=== PATIENT | female | born 1990 | race Caucasian/White ===

== ENCOUNTER → 2018-02-08 13:16 | Outpatient (CLI) | payer MEDICAID, SELFPAY ==
[2018-02-08 16:08] LABS: Hematocrit 34.1 % (37-47); Hemoglobin 11.3 g/dl (12.0-15.0); Mean Corp Hgb Conc 33.1 g/gl (32-36); Mean Corpuscular Hgb 32.8 pg (27.0-32.0); Mean Corpuscular Volume 98.8 fL (81-99); Mean Platelet Vol. 10.8 fl (6.2-12.0); Platelet Count 279 K/mm3 (150-450); RBC Distribution Width SD 44.6 fl (35.1-43.9); Red Blood Count 3.45 M/mm3 (4.2-5.4); White Blood Count 12.7 K/mm3 (4.4-11.0)
[2018-02-08 16:09] LABS: Scan Indicated on CBC? Y/N NO
[2018-02-08 16:16] LABS: Glucose Challenge Gest 1H 50g 96 mg/dL (70-140)
== END ==
PROVIDERS: Visit Provider Obstetrics & Gynecology
DX: Z34.83 Encounter for supervision of other normal pregnancy, third trimester (principal)
CPT/HCPCS: 36415; 82950; 85027

== ENCOUNTER → 2018-03-16 09:51 | Outpatient (CLI) | payer MEDICAID, SELFPAY ==
--- NOTE | 2018-03-16 09:52 | ECHOL_ITS ---
Reason For Study: CARDIOMYOPATHY Procedure This was a limited 2D transthoracic echocardiogram. Limited views were obtained. Exam performed in department. Left Ventricle Normal LV size. Left ventricular systolic function is lower limits of normal. The estimated ejection fraction is 50 %. No regional wall motion abnormalities noted. Right Ventricle Normal RV size. Normal systolic function. Atria Normal left atrium. Normal right atrium. Mitral Valve There is no mitral annular calcification. Mild diffuse mitral valve thickening. Tricuspid Valve Normal tricuspid valve. Aortic Valve Trisinus/trileaflet aortic valve. Normal aortic valve. Pulmonic Valve The pulmonic valve is not well visualized. Pericardium/Pleural Trivial pericardial effusion. There are no echocardiographic indications of cardiac tamponade. MMode/2D Measurements & Calculations LVIDd: 4.6 cm IVSd: 1.1 cm LAV(MOD-bp): 69.9 ml LVIDs: 3.5 cm LVPWd: 1.1 cm LAV(MOD-bp) Indexed: 40.7 ml/m2 RVDd: 3.5 cm FS: 24.0 % LAV(MOD-sp2): 71.5 ml LAV(MOD-sp4): 66.2 ml LA A4 area: 20.6 cm2 RA A4 area: 16.8 cm2 Interpretation Summary Limited views were obtained. Left ventricular systolic function is lower limits of normal. The estimated ejection fraction is 50 %. Mild diffuse mitral valve thickening. Trivial pericardial effusion. There are no echocardiographic indications of cardiac tamponade. Ordering Physician: Efren Titus Referring Physician: Jose Spence Performed By: Vera Ball RDCS, RVT
== END ==
PROVIDERS: Visit Provider Physician Assistant Medical
DX: I42.9 Cardiomyopathy, unspecified (principal); R00.2 Palpitations; I49.3 Ventricular premature depolarization
CPT/HCPCS: 93308

== ENCOUNTER 2018-04-26 05:18 | Inpatient (IN) | payer MEDICAID, SELFPAY ==
[2018-04-25 13:16] VITALS: BMI 42.0
[2018-04-25 14:39] LABS: Absolute Lymphocyte Count 2.23 X10^3/ul (0.83-4.51); Absolute Neutrophil Count 7.2 X10^3/uL (2.0-7.7); Basophil# 0.02 X10^3/uL; Basophil% 0.2 % (0-1); Eosinophil# 0.09 X10^3/uL; Eosinophils% 0.9 % (0-5); Hematocrit 33.1 % (37-47); Hemoglobin 10.8 g/dl (12.0-15.0); Lymphocyte # 2.23 X10^3/ul (4.0); Lymphocyte % 21.6 % (19-41); Mean Corp Hgb Conc 32.6 g/gl (32-36); Mean Corpuscular Hgb 30.3 pg (27.0-32.0); Mean Platelet Vol. 10.7 fl (6.2-12.0); Monocyte# 0.79 X10^3/uL; Monocyte% 7.6 % (0-10); Neutrophil # 7.17 X10^3/uL (2.7-7.7); Neutrophil % 69.4 % (47-70); Platelet Count 254 K/mm3 (150-450); Red Blood Count 3.56 M/mm3 (4.2-5.4); White Blood Count 10.3 K/mm3 (4.4-11.0)
[2018-04-25 14:40] LABS: POSITIVE COUNT NO; POSITIVE DIFFERENTIAL NO; POSITIVE MORPHOLOGY NO
[2018-04-26] VITALS (24 sets, daily range): BP systolic 101–122; BP diastolic 58–80; PULSE 82–103; RESP 16–20; TEMP 36.3–37.7; O2SAT 96–100; BMI 33.5
[2018-04-26] MEDS: Lactated Ringers 1,000 ML 999 ML IV (05:40)
[2018-04-26 06:07] LABS: International Normalized Ratio 1.1; Partial Thromboplast Time 28.6 Seconds (24.1-36.2); Prothrombin Time (Protime)PT. 13.9 SECONDS (11.7-14.9)
[2018-04-26] MEDS: Lactated Ringers 1,000 ML 150 ML IV (06:40)
[2018-04-26] MEDS: Sodium Citrate/Citric Acid 30 ML UDC PO (07:09)
[2018-04-26] MEDS: Cefazolin 2 GM in 0.9% Normal Saline 100 ML IV (07:20)
[2018-04-26] MEDS: Ketorolac 30 MG/ML Syringe IV (07:30)
[2018-04-26] MEDS: Oxytocin 30 units/NS 500 ml 30 UNITS/500 ML IV.SOLN 167 UNITS IV (07:38)
--- NOTE | 2018-04-26 08:22 | OP.PCM_ITS ---
Operative Report Date of Procedure: 04/26/18 Surgeon: Jose Spence MD, FACOG Mineral Resources Inspector: AMEENA Mendiola Anesthesia: Erin Clifton CRNA Anesthesia: Spinal with Duramorph Pre-op Diagnosis: - -Prior Section Post-Op Diagnosis: - -Prior Section Procedure: Repeat Low Transverse Cervical Caesarean Section Findings: Viable female infant with Apgars of 8/9 in occiput posterior presentation with clear amniotic fluid and normal three-vessel placenta. Indication: This is a 27-year-old who presents for her second at 39+ weeks gestation. care has otherwise been uneventful. The patient has been counseled regarding the risk and indications of this procedure including the possibility of bleeding infection and injury to surrounding structures such as bowel bladder. All questions were answered. Procedure: Patient was taken to the operating room where after spinal anesthesia was placed, the patient was prepped and draped in usual sterile fashion and a Ceja catheter was placed. The abdomen was entered through the patient's prior Pfannenstiel incision and peritoneum was entered bluntly. After developing a bladder flap on the lower uterine segment a low transverse incision was made on the uterus and head was easily delivered onto the operative field the nose mouth and oropharynx were bulb suctioned. Subsequently a viable female infant was born with Apgars of/9. The was noted to cry move all extremities vigorously on the operative field. The umbilical cord was doubly clamped and ligated and infant handed to the nursery personnel who were present for the delivery. Placenta was delivered and noted to be 3 vessels and normal. Uterus was exteriorized and remaining placental tissue was removed. The uterus was then closed in 2 layers first with running locked 0 Vicryl suture followed by a second imbricating layer with 0 Vicryl suture. 0 Vicryl suture was then used in a horizontal mattress interrupted fashion to affect final hemostasis of the uterine incision line. Normal fallopian tubes and ovaries were visualized and the uterus was returned to the pelvis. Hemostasis was noted and rectus abdominis muscles were reapproximated in the midline with interrupted Number 0 Vicryl suture in a horizontal mattress fashion. Fascia was closed with running Number 1 PDS Strata fix suture. Subcutaneous tissue was irrigated with copious amounts of saline solution and then closed with running 3-0 Vicryl suture. Skin was closed with 4-0 monocryl suture in a running subcuticular fashion. Silver Mefilex was placed across the incision. The patient tolerated the procedure well and was taken to the recovery room in satisfactory condition. Sponge, needle, and instrument counts were all reportedly correct. EBL was <500 cc. Ancef 2 gms IV was given prior to the procedure. Spicemen to Pathology: None Complications: None
--- NOTE | 2018-04-26 08:23 | DCINST_ITS ---
Discharge Diet: No Restrictions Discharge Activity: May not drive while taking narcotic pain medications., May Shower, May Take a Tub Bath May resume sexual activity in: 4-6 weeks Lifting Restrictions: 20 pounds Additional Activity Instructions:: Nothing in the vagina for 4-6 weeks. You may return to work/school in 6 weeks. Call your doctor if your incision/area has: Continuous Slow Oozing, Sudden Increased Bleeding, Increased Pain/ Swelling, Increased Redness, Foul Smelling Discharge Call your doctor if you observe: Fever of 101 or Higher, Inability to urinate, Inability to have a bowel movement, Using more than one pad per hour Additional Instructions: If you experience any of the following, contact your healthcare provider. * Bleeding that soaks a pad every hour for 2 hours * Unrelieved incision or abdominal pain * Swelling, redness, discharge or bleeding from your incision or episiotomy site * Your incision begins to separate * Problems urinating (including inability to urinate or burning while urinating) . * Visual changes * Severe headache * Flu-like symptoms * Pain or redness in one of both of your breasts * Pain, warmth, tenderness or swelling in your legs, especially the calf area * Frequent nausea and vomiting * Symptoms of depression or anxiety If you experience any of the following, call 911 or go to the nearest Emergency Room. * Chest pain * Problems breathing * Seizure activity * Partial or complete paralysis of a body part, slurred speech, weakness or drooping of the face, or a sudden inability to walk or hold your balance Allergies/Adverse Reactions: Allergies No Known Allergies Allergy (Verified 01/11/18 11:30) Medications to take at Discharge vitamin,calcium,tmwwjnpo-svze-ogfbw acid tablet 1 tab PO BID 11/24/17 labetalol 100 mg tablet 150 mg PO BID tab 01/13/18 Docusate Sodium [Colace] 100 mg PO BID PRN PRN #60 cap 04/26/18 Oxycodone [Oxyir] 5 mg PO Q6H PRN PRN 7 Days #20 tab 04/26/18 The following prescriptions were given: Oxycodone [Oxyir] 5 mg PO Q6H PRN PRN 7 Days #20 tab PRN Reason: Severe Pain (-09/06) Docusate Sodium [Colace] 100 mg PO BID PRN PRN #60 cap PRN Reason: Constipation Follow-Up: Call to make an appointment with your doctor for an incision check in 1-2 weeks. You will also need a 6 week post- follow up appointment. Please Follow Up With: Jose Spence MD - [phone] When: Call to make an appointment for an incision check in 1 week. Primary Care Physician: Care Physician,No Primary [Primary Care Provider] -
[2018-04-26] MEDS: Methylergonovine 0.2 MG/ML Ampul IM ×2 (09:05→09:25)
[2018-04-26] MEDS: miSOPROStol 200 MCG Tablet PO ×3 (09:25→18:24)
[2018-04-26] MEDS: Carboprost Tromethamine 250 MCG/ML Ampul IM (09:50)
--- NOTE | 2018-04-26 10:54 | NURSING ---
bedside report given to DILIA Larsen
[2018-04-26] MEDS: Labetalol 100 MG Tablet 150 MG PO (11:20)
[2018-04-26] MEDS: Lactated Ringers 1,000 ML 100 ML IV ×2 (12:40→22:59)
[2018-04-26] MEDS: Cefazolin 1 GM/50 ML BAG IV ×2 (15:54→23:00)
--- NOTE | 2018-04-26 19:36 | NURSING ---
LE: EBL from hemorrhage 500 cc via scale.
[2018-04-26] MEDS: Acetaminophen 500 MG Tablet 1000 MG PO (22:59)
[2018-04-26] MEDS: Labetalol 100 MG Tablet PO (22:59)
[2018-04-27] VITALS (11 sets, daily range): BP systolic 96–106; BP diastolic 55–74; PULSE 80–97; RESP 16–18; TEMP 36.8–37.4; O2SAT 94–98
[2018-04-27] MEDS: Ketorolac 30 MG/ML Syringe IV ×4 (02:13→19:22)
[2018-04-27 04:46] LABS: Hematocrit 26.5 % (37-47); Hemoglobin 8.8 g/dl (12.0-15.0); Mean Corp Hgb Conc 33.2 g/gl (32-36); Mean Corpuscular Hgb 31.7 pg (27.0-32.0); Mean Corpuscular Volume 95.3 fL (81-99); Mean Platelet Vol. 10.7 fl (6.2-12.0); Platelet Count 214 K/mm3 (150-450); RBC Distribution Width SD 46.1 fl (35.1-43.9); Red Blood Count 2.78 M/mm3 (4.2-5.4); White Blood Count 13.1 K/mm3 (4.4-11.0)
[2018-04-27 04:56] LABS: Scan Indicated on CBC? Y/N NO
[2018-04-27] MEDS: oxyCODONE 5 MG Tablet PO ×2 (08:17→12:23)
[2018-04-27] MEDS: Senna/Docusate Sodium 1 Tablet PO (08:18)
[2018-04-27] MEDS: Lactated Ringers 1,000 ML 100 ML IV (08:18)
--- NOTE | 2018-04-27 09:17 | PN.OBGYN_ITS ---
Subjective: Patient without complaints. Tolerating diet well. Denies flatus. Minimal vaginal bleeding now after uterine atony postop requiring 2 doses of Methergine , 3 doses of Cytotec, and a single dose of Hemabate. - Physical Exam Vital Signs AF, VSS Temp Pulse Resp BP Pulse Ox 98.3 F 91 16 96/55 L 95 04/27/18 04:14 04/27/18 06:57 04/27/18 06:57 04/27/18 04:14 04/27/18 06:57 Oxygen Delivery Method Room Air Weight: 177 lb 4 oz Body Mass Index (BMI) 33.5 Intake and Output for Last 24 Hours 04/25/18 04/26/18 04/27/18 23:59 23:59 23:59 Intake Total 3148 / 3148 1177 / 1177 Output Total 3200 / 3200 1200 / 1200 Balance -52 / -52 -23 / -23 Laboratory Tests Past 24 Hrs 04/27/18 04:21 WBC 13.1 H RBC 2.78 L Hgb 8.8 L Hct 26.5 L MCV 95.3 MCH 31.7 MCHC 33.2 RDW 14.0 RDW Differential 46.1 H Plt Count 214 MPV 10.7 Wound is clean, dry, intact. Good urine output. Hemoglobin okay. Medical Necessity - Tobacco Use Smoking Status: Never smoker Assessment/Plan All Active Problems (Last Reviewed 01/11/18 @ 11:31 by Tuyet Raygoza) Palpitations (Acute) Cardiomyopathy (Acute) Doing well. Continuing present care.
[2018-04-27] MEDS: Labetalol 100 MG Tablet PO ×2 (10:03→21:47)
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
[2018-04-27] MEDS: 0.9% Saline Lock 10 ML Syringe IV (19:27)
[2018-04-28] MEDS: Ketorolac 30 MG/ML Syringe IV (01:04)
[2018-04-28] MEDS: oxyCODONE 5 MG Tablet PO ×2 (01:04→15:54)
[2018-04-28] MEDS: 0.9% Saline Lock 10 ML Syringe IV (01:13)
[2018-04-28 02:00] VITALS: BP 102/65; PULSE 94; RESP 16; TEMP 36.9; O2SAT 94
[2018-04-28] MEDS: Acetaminophen 500 MG Tablet 1000 MG PO (05:58)
[2018-04-28 08:00] VITALS: BP 99/63; PULSE 88; RESP 15; TEMP 36.8
--- NOTE | 2018-04-28 09:07 | PCM.PN.OB ---
Subjective: Patient without complaints. Tolerating diet well. Breast-feeding going well. Positive flatus. Wants to go home today. - Physical Exam Vital Signs AF, VSS Temp Pulse Resp BP Pulse Ox 98.5 F 94 16 102/65 94 04/28/18 02:00 04/28/18 02:00 04/28/18 02:00 04/28/18 02:00 04/28/18 02:00 Oxygen Delivery Method Room Air Weight: 177 lb 4 oz Body Mass Index (BMI) 33.5 Intake and Output for Last 24 Hours 04/26/18 04/27/18 04/28/18 23:59 23:59 23:59 Intake Total 3148 / 3148 2399 / 2399 Output Total 3200 / 3200 2150 / 2150 Balance -52 / -52 249 / 249 Wound is clean, dry, intact. Good urine output. Medical Necessity - Tobacco Use Smoking Status: Never smoker Assessment/Plan All Active Problems (Last Reviewed 01/11/18 @ 11:31 by Tuyet Raygoza) Palpitations (Acute) Cardiomyopathy (Acute) Operative day #2 status post repeat Doing well. Wants to go home today. Will release to home with routine instructions.
[2018-04-28 10:00] VITALS: BP 101/66
[2018-04-28] MEDS: Senna/Docusate Sodium 1 Tablet PO (10:31)
[2018-04-28] MEDS: Labetalol 100 MG Tablet PO (10:31)
--- NOTE | 2018-04-28 12:38 | NURSING ---
discharge talk done; pt verbalizes understanding; denies need for any further infant or maternal care teaching
[2018-04-28] MEDS: Ibuprofen 600 MG Tablet PO (12:45)
[2018-04-28 15:58] VITALS: BP 113/68; PULSE 97; RESP 16; TEMP 36.8; O2SAT 96
== END 2018-04-28 16:15 | disposition home or self-care (01) | DRG 371 ==
PROVIDERS: Admitting Provider Obstetrics & Gynecology; Visit Provider Obstetrics & Gynecology
PROC: 10D00Z1 Extraction of Products of Conception, Low, Open Approach (ICD-10-PCS; CPT 59514; principal; 2018-04-26 07:15)
DX: O34.219 Maternal care for unspecified type scar from previous cesarean delivery (principal); Z3A.39 39 weeks gestation of pregnancy; Z37.0 Single live birth; O72.1 Other immediate postpartum hemorrhage
CPT/HCPCS: 85025; 85027; 85610; 85730; 86850; 86900; 99218; J7120; A4216; G0378; J2405

== ENCOUNTER → 2018-09-15 12:41 | Outpatient (CLI) | payer MEDICAID, SELFPAY ==
--- NOTE | 2018-09-15 12:43 | ECHOD_ITS ---
Reason For Study: CARDIOMYOPATHY Procedure This was a 2D Doppler, Color Flow transthoracic echocardiogram. The exam was of good technical quality. Exam performed in department. Left Ventricle Normal LV size. Mild global left ventricular systolic dysfunction. The estimated ejection fraction is 45 %. Transmitral doppler flow suggestive of impaired relaxation of left ventricle. No regional wall motion abnormalities noted. Right Ventricle Normal RV size. Normal systolic function. Atria Normal left atrium. Normal right atrium. No doppler evidence for ASD. Mitral Valve There is no mitral annular calcification. Mild diffuse mitral valve thickening. Trivial mitral valve insufficiency. Tricuspid Valve Normal tricuspid valve. Mild diffuse thickening of the tricuspid valve. Mild (1+) eccentric tricuspid valve insufficiency. Right ventricular systolic pressure estimated to be 20 mmHg. Aortic Valve Trisinus/trileaflet aortic valve. Normal aortic valve. Pulmonic Valve The pulmonic valve is not well visualized. Mild (1+) pulmonic valve insufficiency. Great Vessels Normal sized aortic root. Pericardium/Pleural Trivial pericardial effusion. There are no echocardiographic indications of cardiac tamponade. MMode/2D Measurements & Calculations LVIDd: 5.2 cm IVSd: 1.0 cm Ao root diam: 3.0 cm LVIDs: 4.0 cm LVPWd: 0.98 cm LA dimension: 3.3 cm RVDd: 3.1 cm FS: 23.6 % LAV(MOD-bp): 52.2 ml LA A4 area: 18.0 cm2 RA A4 area: 11.9 cm2 LAV(MOD-bp) Indexed: 32.3 ml/m2 LAV(MOD-sp2): 50.6 ml LAV(MOD-sp4): 50.5 ml Doppler Measurements & Calculations MV E max andrea: 48.4 cm/sec Lat Peak E' Andrea: 5.7 cm/sec Med Peak E' Andrea: 5.4 cm/sec MV A max andrea: 56.6 cm/sec E/E' lat: 8.5 E/E' med: 8.9 MV E/A: 0.86 Ao V2 max: 101.8 cm/sec LV V1 max: 82.2 cm/sec PA V2 max: 91.2 cm/sec Ao max P.1 mmHg LV V1 max P.7 mmHg TR max andrea: 202.7 cm/sec TR max P.5 mmHg Interpretation Summary Mild global left ventricular systolic dysfunction. The estimated ejection fraction is 45 %. Mild diffuse mitral valve thickening. Trivial mitral valve insufficiency. Mild diffuse thickening of the tricuspid valve. Mild (1+) eccentric tricuspid valve insufficiency. Mild (1+) pulmonic valve insufficiency. Trivial pericardial effusion. There are no echocardiographic indications of cardiac tamponade. Right ventricular systolic pressure estimated to be 20 mmHg. Transmitral doppler flow suggestive of impaired relaxation of left ventricle Ordering Physician: Jose Rodriguez Referring Physician: Efren Titus Performed By: Vera Ball, HELEN, RVT
== END ==
PROVIDERS: Referring Provider Internal Medicine Cardiovascular Disease; Visit Provider Internal Medicine Cardiovascular Disease
DX: I42.9 Cardiomyopathy, unspecified (principal); R00.2 Palpitations; I49.3 Ventricular premature depolarization
CPT/HCPCS: 93225; 93226; 93306

== ENCOUNTER 2018-10-09 15:26 | Emergency (ER) | payer MEDICAID, SELFPAY ==
[2018-10-09 15:27] VITALS: BP 122/94; PULSE 71; PULSE 77; RESP 14; RESP 18; TEMP 36.9; O2SAT 97; O2SAT 98; BMI 26.9
--- NOTE | 2018-10-09 15:29 | NURSING ---
NO OLD EKGS
--- NOTE | 2018-10-09 15:39 | EKG12_ITS ---
Test Reason : CP Blood Pressure : / mmHG Vent. Rate : 074 BPM Atrial Rate : 074 BPM P-R Int : 182 ms QRS Dur : 104 ms QT Int : 406 ms P-R-T Axes : 046 011 061 degrees QTc Int : 450 ms Normal sinus rhythm Low voltage QRS Incomplete right bundle branch block Borderline ECG Confirmed by KIM BROWN, JOSH ([id number]), index editor ANTOINETTE MORRISSEY ([id number]) on 10/10/2018 3:25:14 PM Referred By: DAVI Confirmed By:JOSH ALVAREZ MD
--- NOTE | 2018-10-09 15:43 | ED.DCSUM_ITS ---
- ER Visit Summary Date of Service: 10/09/18 Chief Complaint: Chest pain History of Present Illness: The patient is a 27 F who presents for a 2-hour episode of chest pain, described as chest heaviness and something sitting on her chest. Onset was approximately 2-1/2 hours prior to presentation. Patient was folding laundry and began having the sensation of chest heaviness. She had associated shortness of breath and lightheadedness. Symptoms were worse with movement. No associated fever, cough, URI symptoms, abdominal pain, nausea or vomiting. Patient has a history of cardiomyopathy that was diagnosed during her recent . She is 5 months post delivery. She is supposed to be taking labetalol but has not been taking it because she breast-feeds. She took 1 dose of 100 mg of labetalol when her symptoms started today. Patient denies any recent travel or surgery, no history of DVT or PE, no history of smoking. She has strong family history of early coronary artery disease in parents and siblings. Physical Examination: Vital signs: afebrile, hemodynamically stable, no hypoxia on room air General: well nourished, well developed, in no distress Skin: warm, dry, no rash, no pallor HEENT: normocephalic and atraumatic; PERRL, EOMI, moist mucous membranes Cardiovascular: regular rate and rhythm without murmurs, no peripheral edema, 2+ pulses all distal extremities Respiratory: No increased work of breathing, lungs are clear to auscultation bilaterally, no rales, rhonchi or wheezing Abdominal: Abdomen is soft, nontender with normoactive bowel sounds, no guarding or rebound, no masses MSK: Moves all extremities, no deformities, normal strength Neuro: Awake and alert, oriented ?4. No facial droop, sensation and motor function intact and symmetric Test Results: Abnormal Lab Results 10/09/18 10/09/18 10/09/18 15:30 15:30 15:30 WBC 7.5 RBC 4.25 Hgb 12.9 Hct 39.9 MCV 93.9 MCH 30.4 MCHC 32.3 RDW 13.0 RDW Differential 44.4 H Plt Count 300 MPV 10.2 Immature Gran % (Auto) 0.000 Neut % (Auto) 45.0 L Lymph % (Auto) 44.2 H Boyd % (Auto) 9.2 Eos % (Auto) 1.3 Baso % (Auto) 0.3 Absolute Neuts (auto) 3.4 Absolute Lymphs (auto) 3.32 Total Counted Not Reportable Sodium 138 Potassium 3.3 L Chloride 102 Carbon Dioxide 30.0 Anion Gap 6 BUN 14 Creatinine 0.74 Estim Creat Clear Calc 86.17 Est GFR (MDRD) Af Amer 120 Est GFR (MDRD) Non-Af 99 BUN/Creatinine Ratio 18.9 Glucose 97 Calcium 8.6 Troponin I < 0.015 Serum , Qual NEGATIVE Clinical Impression(s) from Imaging Studies Chest X-Ray 10/09/18 15:58 IMPRESSION: No acute cardiopulmonary process. Electronically Signed: Keny Haas, at 16:07 EST Tel , Service support , Medications Given Discontinued Medications Aspirin (Aspirin, Baby) 324 mg PO X1 STA Stop: 10/09/18 15:40 Last Admin: 10/09/18 15:50 Dose: 324 mg Emergency Department Course and Treatment: Patient was given aspirin. She is currently symptom-free and thus was not given any nitro. EKG showed a sinus rhythm, normal rate, no ischemic changes, unchanged from an old EKG. Troponin negative. negative. CBC showed no leukocytosis or anemia. Potassium mildly decreased at 3.3. Otherwise no electrolyte derangements. Chest x-ray showed no acute process. Patient is PERC negative and low risk per Wells criteria, thus no further workup was performed for PE. Patient's heart score is 2. Given her history of cardiomyopathy, she was discussed with Dr. Titus, who does not think her current symptoms sound cardiac in nature, especially since there is a pleuritic nature to her pain. He recommended patient take her beta-blockers as she was prescribed and continue follow-up, including with her primary care doctor if this chest pain continues. Patient was reevaluated and continued to be asymptomatic. No ectopy was noted on telemetry while she was in the emergency department. Patient was discharged home and is to follow-up with her family doctor. Treatment Plan: [] Disposition: [] Impression: Chest pain, history of cardiomyopathy, history of PVCs This note was generated with [employer] software. It may contain incorrect words, spelling, and punctuation that were not noted in review of the chart p rior to signing ED Disposition - Plan for ED Patient: Disposition: Home or Assisted Living Chief Complaint: Chest Pain Instructions: ED Chest Pain Atypical Unkn Cause Referrals: Care Physician,No Primary [Primary Care Provider] - Doctor,Your [STAFF PHYSICIAN] - 3-5 Days if not improving Additional Instructions: Please follow-up with your new car inspector as you have been scheduled and advised. If you continue to have this chest pain with movement, please follow-up with your family doctor. Take your medications as prescribed by your heart doctor. You may use anti-inflammatories as needed for any further pain. If at any point you have worsening of your condition or any further concerns, return immediately to the emergency department for another evaluation.
[2018-10-09 15:48] VITALS: O2SAT 98
[2018-10-09] MEDS: Aspirin 81 MG TAB.CHEW 324 MG PO (15:50)
[2018-10-09 15:58] LABS: Absolute Lymphocyte Count 3.32 X10^3/ul (0.83-4.51); Absolute Neutrophil Count 3.4 X10^3/uL (2.0-7.7); Basophil# 0.02 X10^3/uL; Basophil% 0.3 % (0-1); Eosinophils% 1.3 % (0-5); Hematocrit 39.9 % (37-47); Hemoglobin 12.9 g/dl (12.0-15.0); Lymphocyte # 3.32 X10^3/ul (4.0); Lymphocyte % 44.2 % (19-41); Mean Corp Hgb Conc 32.3 g/gl (32-36); Mean Corpuscular Hgb 30.4 pg (27.0-32.0); Mean Corpuscular Volume 93.9 fL (81-99); Mean Platelet Vol. 10.2 fl (6.2-12.0); Monocyte# 0.69 X10^3/uL; Monocyte% 9.2 % (0-10); Neutrophil # 3.38 X10^3/uL (2.7-7.7); Platelet Count 300 K/mm3 (150-450); RBC Distribution Width SD 44.4 fl (35.1-43.9); Red Blood Count 4.25 M/mm3 (4.2-5.4); White Blood Count 7.5 K/mm3 (4.4-11.0)
--- NOTE | 2018-10-09 15:58 | RAD_ITS ---
STUDY: X-RAY CHEST REASON FOR EXAM: Female, 27 years old. Chest pain TECHNIQUE: PA and lateral chest COMPARISON: None. FINDINGS: The lungs are clear and expanded. Normal cardiomediastinal silhouette, madiha and pleural margins. No acute osseous or upper abdominal process. RAD/Chest PA and Lateral IMPRESSION: No acute cardiopulmonary process. Electronically Signed: Keny Haas, at 16:07 EST Tel , Service support ,
[2018-10-09 16:00] LABS: POSITIVE COUNT NO; POSITIVE DIFFERENTIAL NO; POSITIVE MORPHOLOGY NO
[2018-10-09 16:07] LABS: Anion Gap 6 (5-15); BUN 14 mg/dL (7-18); BUN/Creat Ratio 18.9 RATIO (10-20); Calcium,Total 8.6 mg/dL (8.5-10.1); Chloride 102 mmol/L (98-107); Creatinine, Serum 0.74 mg/dL (0.55-1.02); EST Glomerular Filtration Rate 99 mL/min (>60); Est Glom Filt Rate - Afr Amer 120 mL/min (>60); Estimated Creatinine Clearance 86.17 ml/min; Glucose 97 mg/dL (74-106); Potassium 3.3 mmol/L (3.5-5.1); Sodium Level 138 mmol/L (136-145)
[2018-10-09 16:09] LABS: Pregnancy, Serum, hCG Quali. NEGATIVE Negative (0-9 Nonpreg)
[2018-10-09 16:32] VITALS: BP 96/85; PULSE 85; RESP 21; O2SAT 95
--- NOTE | 2018-10-09 17:04 | ED.DEP ---
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 If you continue to have this chest pain with movement, please follow-up with your family doctor. Take your medications as prescribed by your heart doctor. You may use anti-inflammatories as needed for any further pain. If at any point you have worsening of your condition or any further concerns, return immediately to the emergency department for another evaluation.
[2018-10-09 17:11] VITALS: BP 102/79; PULSE 75; RESP 19; O2SAT 98
--- NOTE | 2018-10-09 17:12 | ED.RN ---
IV DC'ED, CATHETER INTACT, SMALL GAUZE DRESSING PLACED. DISCHARGE INSTRUCTIONS GIVEN TO AND REVIEWED WITH PATIENT, PATIENT DENIES QUESTIONS OR CONCERNS AND VOICES UNDERSTANDING OF DISCHARGE INSTRUCTIONS. PT AMBULATES OUT OF ROOM WITHOUT DIFFICULTY.
== END 2018-10-09 17:13 | disposition home or self-care (01) ==
PROVIDERS: Emergency Provider Emergency Medicine
DX: R07.9 Chest pain, unspecified (principal); Z82.49 Family history of ischemic heart disease and other diseases of the circulatory system
CPT/HCPCS: 71046; 80048; 84484; 84703; 85025; 93005; 99285; A4216

== ENCOUNTER → 2019-05-28 12:50 | Outpatient (CLI) | payer MEDICAID, SELFPAY ==
[2019-01-17 14:12] VITALS: BMI 28.1
[2019-05-11 14:22] VITALS: BMI 28.1
--- NOTE | 2019-05-28 12:54 | ECHOD_ITS ---
Reason For Study: Cardiomyopathy Procedure This was a 2D Doppler, Color Flow transthoracic echocardiogram. Exam performed in department. Left Ventricle Normal LV size. Mild global left ventricular systolic dysfunction. The estimated ejection fraction is 45 %. Transmitral doppler flow suggestive of impaired relaxation of left ventricle. Right Ventricle Normal RV size. Normal systolic function. Atria Normal left atrium. Normal right atrium. No doppler evidence for ASD. Mitral Valve There is no mitral annular calcification. Mild diffuse mitral valve thickening. Mild (1+) eccentric mitral valve insufficiency. Tricuspid Valve Normal tricuspid valve. Mild to moderate (1-2+) eccentric tricuspid valve insufficiency. Right ventricular systolic pressure estimated to be 23 mmHg. Aortic Valve Trisinus/trileaflet aortic valve. Normal aortic valve. Pulmonic Valve The pulmonic valve is not well visualized. Mild (1+) pulmonic valve insufficiency. Great Vessels The aortic root is not well visualized. Pericardium/Pleural Trivial pericardial effusion. There are no echocardiographic indications of cardiac tamponade. MMode/2D Measurements & Calculations LVIDd: 4.5 cm IVSd: 1.3 cm LA dimension: 3.8 cm LVIDs: 3.4 cm LVPWd: 1.2 cm RVDd: 3.5 cm FS: 24.5 % LAV(MOD-bp): 49.7 ml LVAd ap4: 31.7 cm2 SV(MOD-sp4): 47.9 ml LAV(MOD-sp2): 50.6 ml EDV(MOD-sp4): 108.4 ml LAV(MOD-sp4): 48.6 ml EDV(sp4-el): 108.6 ml LVAs ap4: 21.8 cm2 ESV(MOD-sp4): 60.5 ml ESV(sp4-el): 61.0 ml EF(MOD-sp4): 44.2 % EF(sp4-el): 43.8 % SV(sp4-el): 47.6 ml LA A4 area: 17.3 cm2 RA A4 area: 15.1 cm2 Time Measurements MV dec time: 0.24 sec Doppler Measurements & Calculations MV E max andrea: 53.7 cm/sec Lat Peak E' Andrea: 6.5 cm/sec Med Peak E' Andrea: 7.9 cm/sec MV A max andrea: 63.7 cm/sec E/E' lat: 8.3 E/E' med: 6.8 MV E/A: 0.84 MV V2 max: 66.3 cm/sec MV P1/2t max andrea: 57.7 cm/sec Ao V2 max: 89.1 cm/sec MV max P.8 mmHg MV P1/2t: 99.4 msec Ao max P.2 mmHg MV V2 mean: 42.3 cm/sec MV mean P.78 mmHg MV dec slope: 170.0 cm/sec2 MV V2 VTI: 18.6 cm MVA(P1/2t): 2.2 cm2 LV V1 max: 78.6 cm/sec PA V2 max: 98.2 cm/sec PI dec slope: 204.8 cm/sec2 LV V1 max P.5 mmHg TR max andrea: 225.8 cm/sec TR max P.4 mmHg Interpretation Summary Mild global left ventricular systolic dysfunction. The estimated ejection fraction is 45 %. Mild diffuse mitral valve thickening. Mild (1+) eccentric mitral valve insufficiency. Mild to moderate (1-2+) eccentric tricuspid valve insufficiency. Mild (1+) pulmonic valve insufficiency. Trivial pericardial effusion. There are no echocardiographic indications of cardiac tamponade. Right ventricular systolic pressure estimated to be 23 mmHg. Transmitral doppler flow suggestive of impaired relaxation of left ventricle Ordering Physician: Efren Titus Referring Physician: Efren Titus Performed By: Rory Mcclendon RCS
== END ==
PROVIDERS: Referring Provider Internal Medicine Cardiovascular Disease; Visit Provider Internal Medicine Cardiovascular Disease
DX: I42.9 Cardiomyopathy, unspecified (principal); I49.3 Ventricular premature depolarization; R00.2 Palpitations
CPT/HCPCS: 93225; 93226; 93306

== ENCOUNTER → 2019-06-28 17:47 | Outpatient (CLI) | payer MEDICAID, SELFPAY ==
[2019-05-11 14:22] VITALS: BMI 28.1
[2019-06-28 20:25] LABS: Chlamydia Trachomatis by PCR Negative (Negative); Neisserai gonorrhoeae by PCR Negative (Negative); Probe Check PASS; Sample Adequacy Control PASS; Specimen Processing Control PASS
[2019-07-03 16:28] LABS: HPV Reflexed? NOT INDICATED
== END ==
PROVIDERS: Referring Provider Obstetrics & Gynecology; Visit Provider Obstetrics & Gynecology
DX: Z12.4 Encounter for screening for malignant neoplasm of cervix (principal); Z11.3 Encounter for screening for infections with a predominantly sexual mode of transmission
CPT/HCPCS: 87491; 87591; 87624; 88175; G0145

== ENCOUNTER → 2019-08-08 11:49 | Outpatient (CLI) | payer MEDICAID, SELFPAY ==
[2019-05-11 14:22] VITALS: BMI 28.1
[2019-08-08 13:30] LABS: Absolute Lymphocyte Count 3.01 X10^3/uL (0.83-4.51); Absolute Neutrophil Count 5.3 X10^3/uL (2.0-7.7); Basophil# 0.03 X10^3/uL; Basophil% 0.3 % (0-1); Eosinophil# 0.08 X10^3/uL; Eosinophils% 0.9 % (0-5); Hematocrit 36.8 % (37-47); Hemoglobin 12.5 g/dL (12.0-15.0); Lymphocyte # 3.01 X10^3/ul (4.0); Lymphocyte % 33.3 % (19-41); Mean Corpuscular Hgb 31.7 pg (27.0-32.0); Mean Corpuscular Volume 93.4 fL (81-99); Mean Platelet Vol. 11.5 fl (6.2-12.0); Monocyte# 0.56 X10^3/uL; Monocyte% 6.2 % (0-10); NRBC Flagged by Analyzer 0 % (0-5); Neutrophil # 5.33 X10^3/uL (2.7-7.7); Neutrophil % 59.1 % (47-70); Platelet Count 213 K/mm3 (150-450); RBC Distribution Width CV 12.6 % (11.6-14.6); RBC Distribution Width SD 43.4 fl (35.1-43.9); Red Blood Count 3.94 M/mm3 (4.2-5.4)
[2019-08-08 13:38] LABS: Color, Urine Yellow (Yellow); Glucose, Dipstick Normal (Normal); Ketone-Dipstick Negative (Negative); Leukocyte Esterase-Dipstick 500 /ul (Negative); Nitrite-Dipstick Negative (Negative); Occult Blood-Urine Negative /ul (Negative); Protein-Dipstick Negative (Negative); Urine Bilirubin Dipstick Negative (Negative); Urine Clarity Clear (Clear); Urine Urobilinogen Normal (Normal)
[2019-08-08 13:42] LABS: COTININE Drug Screen Negative (<200 ng/mL)
[2019-08-08 13:50] LABS: Amphetamine Urine VISTA NEGATIVE (<1000 ng/mL); Barbiturate Urine VISTA NEGATIVE (< 200 ng/mL); Benzodiazepine Urine VISTA NEGATIVE (< 200 ng/mL); Cocaine Urine VISTA NEGATIVE (< 300 ng/mL); Ecstacy Urine VISTA NEGATIVE (< 500 ng/mL); Methadone Urine VISTA NEGATIVE (< 300 ng/mL); PCP Urine VISTA NEGATIVE (< 25 ng/mL); THC Urine VISTA NEGATIVE (< 50 ng/mL); Vista UDS pH Range 7
[2019-08-08 13:52] LABS: Thyroid Stim Hormone (TSH) 2.58 uIU/mL (0.358-3.74)
[2019-08-08 14:28] LABS: HIV - WCH Non-Reactive (Nonreactive); Hepatitis B Surface Antigen Non-Reactive (Nonreactive); Hepatitis C Antibody Non-Reactive (Nonreactive); Rubella IgG 33.5 IU/mL
[2019-08-10 01:46] LABS: Prenatal RPR NONREACTIVE (NONREACTIVE)
== END ==
PROVIDERS: Visit Provider Obstetrics & Gynecology
DX: Z34.82 Encounter for supervision of other normal pregnancy, second trimester (principal)
CPT/HCPCS: 36415; 80307; 81002; 84443; 85025; 86703; 86762; 86803; 87340

== ENCOUNTER → 2019-10-17 15:20 | Outpatient (CLI) | payer MEDICAID, SELFPAY ==
[2019-05-11 14:22] VITALS: BMI 28.1
[2019-10-17 15:52] LABS: ROM Internal Control Test YES-OK TO RESULT pt. (Internal QC)
[2019-10-17 15:57] LABS: ROM Patient Test Negative (Negative)
== END ==
PROVIDERS: Visit Provider Obstetrics & Gynecology
DX: Z34.82 Encounter for supervision of other normal pregnancy, second trimester (principal)
CPT/HCPCS: 84112

== ENCOUNTER → 2019-11-02 15:55 | Outpatient (CLI) | payer MEDICAID, SELFPAY ==
[2019-11-02 15:47] VITALS: BMI 28.1
[2019-11-02 17:04] LABS: Absolute Lymphocyte Count 2.96 X10^3/uL (0.83-4.51); Absolute Neutrophil Count 8.1 X10^3/uL (2.0-7.7); Basophil# 0.02 X10^3/uL; Basophil% 0.2 % (0-1); Eosinophil# 0.09 X10^3/uL; Eosinophils% 0.8 % (0-5); Hematocrit 35.7 % (37-47); Lymphocyte # 2.96 X10^3/ul (4.0); Lymphocyte % 25.1 % (19-41); Mean Corp Hgb Conc 33.6 g/dL (32-36); Mean Corpuscular Hgb 32.3 pg (27.0-32.0); Mean Corpuscular Volume 96.2 fL (81-99); Mean Platelet Vol. 11.2 fl (6.2-12.0); Monocyte# 0.62 X10^3/uL; Monocyte% 5.2 % (0-10); NRBC Flagged by Analyzer 0 % (0-5); Neutrophil # 8.05 X10^3/uL (2.7-7.7); Neutrophil % 68.1 % (47-70); Platelet Count 258 K/mm3 (150-450); RBC Distribution Width CV 12.4 % (11.6-14.6); RBC Distribution Width SD 43.4 fl (35.1-43.9); Red Blood Count 3.71 M/mm3 (4.2-5.4); White Blood Count 11.8 K/mm3 (4.4-11.0)
[2019-11-02 17:28] LABS: Anion Gap 8 (5-15); BUN 8 mg/dL (7-18); BUN/Creat Ratio 13.7 RATIO (10-20); Calcium,Total 8.7 mg/dL (8.5-10.1); Chloride 105 mmol/L (98-107); Creatinine, Serum 0.59 mg/dL (0.55-1.02); EST Glomerular Filtration Rate 129 mL/min (>60); Est Glom Filt Rate - Afr Amer 156 mL/min (>60); Glucose 94 mg/dL (74-106); Potassium 3.7 mmol/L (3.5-5.1); Sodium Level 139 mmol/L (136-145); T4 Free Direct 0.94 ng/dL (0.76-1.46); Thyroid Stim Hormone (TSH) 2.04 uIU/mL (0.358-3.74)
== END ==
PROVIDERS: Referring Provider Nurse Practitioner Family; Visit Provider Nurse Practitioner Family
DX: R53.83 Other fatigue (principal); I42.9 Cardiomyopathy, unspecified; I49.3 Ventricular premature depolarization; R00.2 Palpitations
CPT/HCPCS: 36415; 80048; 83735; 84439; 84443; 85025

== ENCOUNTER → 2019-11-19 12:47 | Outpatient (CLI) | payer MEDICAID, SELFPAY ==
[2019-11-02 15:47] VITALS: BMI 28.1
--- NOTE | 2019-11-19 12:48 | ECHOL_ITS ---
Reason For Study: CHF Procedure This was a limited 2D transthoracic echocardiogram. Patient is currently 29 weeks . Exam performed in department. Left Ventricle Normal LV size. Mild concentric left ventricular hypertrophy. The estimated ejection fraction is 35 %. No regional wall motion abnormalities noted. Right Ventricle Normal RV size. Normal systolic function. Atria Normal left atrium. Normal right atrium. Mitral Valve Normal mitral valve. Mild (1+) eccentric mitral valve insufficiency. Tricuspid Valve Normal tricuspid valve. Aortic Valve Normal aortic valve. Trisinus/trileaflet aortic valve. Pulmonic Valve Normal pulmonic valve. Great Vessels Normal aortic root. The pulmonary artery is normal size. Normal inferior vena cava. Pericardium/Pleural No pericardial effusion. MMode/2D Measurements & Calculations LVIDd: 4.8 cm IVSd: 1.3 cm LA dimension: 4.3 cm LVIDs: 3.7 cm LVPWd: 1.2 cm RVDd: 3.7 cm FS: 23.1 % LVAd ap4: 36.3 cm2 SV(MOD-sp4): 56.2 ml SV(sp4-el): 56.4 ml EDV(MOD-sp4): 139.5 ml EDV(sp4-el): 140.2 ml LVAs ap4: 26.4 cm2 ESV(MOD-sp4): 83.3 ml ESV(sp4-el): 83.9 ml EF(MOD-sp4): 40.3 % EF(sp4-el): 40.2 % Doppler Measurements & Calculations Lat Peak E' Andrea: 11.4 cm/sec Med Peak E' Andrea: 7.7 cm/sec Interpretation Summary Normal LV size. Mild concentric left ventricular hypertrophy. The estimated ejection fraction is 35 %. No regional wall motion abnormalities noted. Compared to previous study, the left ventricular systolic function has worsened.. Ordering Physician: Jose Rodriguez Referring Physician: Efren Titus MD Performed By: Rory Mcclendon RCS
== END ==
PROVIDERS: Referring Provider Nurse Practitioner Family; Visit Provider Nurse Practitioner Family
DX: I49.3 Ventricular premature depolarization (principal); R00.2 Palpitations; I42.9 Cardiomyopathy, unspecified
CPT/HCPCS: 93308